=== PATIENT | female | born 1935 | race Caucasian/White ===

== ENCOUNTER 2017-11-26 23:05 | Emergency (ER) | payer MEDICARE, BC ==
[~2017-11-26] VITALS: Ht 165.1 cm; Wt 58.2 kg
[~2017-11-26 23:05] MED LIST: CALCIUM CARBON500 M1 PO; HCTZ 25MG25 MG PO; LEVOTHYROXIN0.075 MG PO; MVI PO; VITAMIN C500 MG PO
[2017-11-26 23:08] VITALS: TEMP 97.6
[2017-11-26] MEDS ORDERED: HCTZ12.5TAB PO (23:55)
[2017-11-26] MEDS ORDERED: SYNTHROID0.075 MG/T PO (23:55)
[2017-11-26] MEDS ORDERED: LYSINE1000 MG PO (23:56)
[2017-11-26] MEDS ORDERED: OMEGA-3 1000 MG1 CAP PO (23:57)
[2017-11-27 01:17] VITALS: BP 147/79; PULSE 71
[2017-11-27] MEDS ORDERED: VITAMIN C500 MG PO ×2 (01:53)
[2017-11-28] MEDS ORDERED: VITAMIN D31000 I1 PO (04:28)
[2017-11-28] MEDS ORDERED: CLEOCIN HCL300 MG PO ×2 (05:43)
[2017-11-28] MEDS ORDERED: CEPHALEXIN500 M1 PO (09:14)
== END 2017-11-27 01:54 | disposition home or self-care (01) ==
LOC: COL.ER 23:05
DX: R04.0 Epistaxis (principal)

== ENCOUNTER 2017-11-28 04:03 | Emergency (ER) | payer MEDICARE, BC ==
[~2017-11-28] VITALS: Ht 167.6 cm; Wt 59.1 kg
[~2017-11-28 04:03] MED LIST changes: +HCTZ12.5TAB PO; +LYSINE1000 MG PO; +OMEGA-3 1000 MG1 CAP PO; +SYNTHROID0.075 MG/T PO
[2017-11-28] MEDS ORDERED: VITAMIN D31000 I1 PO (04:28)
[2017-11-28] MEDS ORDERED: CLEOCIN HCL300 MG PO ×2 (05:43)
[2017-11-28 07:20] LABS: BASO % 0.4 % (0.0-2.0); EOS # 0.2 (0.0-0.7); EOS % 2.3 % (0-4.0); GRAN # 4.7 (1.4-6.5); GRAN % 60.6 % (42.2-75.2); HEMATOCRIT 38.1 % (37.0-47.0); MEAN CELL VOLUME 88 fl (80.0-100.0); MEAN CORPUSCULAR HEMOGLOBIN 30 pg (27.0-31.0); MEAN CORPUSCULAR HGB CONC 34 g/dl (33.0-37.0); MEAN PLATELET VOLUME 9.9 fl (7.4-10.4); MONO # 0.8 (0.1-0.6); MONO % 10.4 % (1.7-9.3); PLATELET COUNT 186 K/mm3 (130-400); RED BLOOD COUNT 4.35 M/mm3 (4.10-5.30); REDCELL DISTRIBUTION WIDTH-CV 13.2 % (11.5-14.5)
[2017-11-28 07:26] LABS: PROTHROMBIN TIME 11.2 SECONDS (9.7-12.8)
[2017-11-28 07:29] LABS: PARTIAL THROMBOPLASTIN TIME 35.5 SECONDS (26.0-37.0)
[2017-11-28 07:30] LABS: CALCIUM 9.7 mg/dL (8.4-10.2); CREATININE, serum 0.97 mg/dL (0.52-1.25); POTASSIUM 3.5 mmol/L (3.4-5.0)
[2017-11-28 09:07] VITALS: BP 143/74; PULSE 72
[2017-11-28] MEDS ORDERED: CEPHALEXIN500 M1 PO (09:14)
== END 2017-11-28 09:20 | disposition home or self-care (01) ==
LOC: COL.ER 04:03
PROVIDERS: Emergency Medicine
DX: R04.0 Epistaxis (principal); I10 Essential (primary) hypertension

== ENCOUNTER 2018-03-25 02:29 | Emergency (ER) | payer MEDICARE, BC ==
[~2018-03-25] VITALS: Ht 167.6 cm; Wt 58.6 kg
[~2018-03-25 02:29] MED LIST changes: +CEPHALEXIN500 M1 PO; +CLEOCIN HCL300 MG PO; +VITAMIN D31000 I1 PO
[2018-03-25 02:33] VITALS: TEMP 98.6
[2018-03-25 03:45] VITALS: BP 151/96; PULSE 64
== END 2018-03-25 03:45 | disposition home or self-care (01) ==
LOC: COL.ER 02:29
DX: R04.0 Epistaxis (principal)

== ENCOUNTER 2018-03-27 09:03 | Emergency (ER) | payer MEDICARE, BC ==
[~2018-03-27] VITALS: Ht 167.6 cm; Wt 58.6 kg
[2018-03-27 10:00] VITALS: TEMP 97.1
[2018-03-27] MEDS ORDERED: CLEOCIN HCL300 MG PO (10:02)
[2018-03-27 10:53] VITALS: BP 133/80; PULSE 80
== END 2018-03-27 10:56 | disposition home or self-care (01) ==
LOC: COL.ER 09:03
DX: R04.0 Epistaxis (principal); I10 Essential (primary) hypertension

== ENCOUNTER → 2019-11-03 | Outpatient (CLI) | payer MEDICARE, BC | LOC: COL.RAD 09:53 | DX: I67.1 Cerebral aneurysm, nonruptured (principal) | CPT/HCPCS: Q9967 ==

== ENCOUNTER → 2020-10-15 | Outpatient (CLI) | payer MEDICARE, BC | LOC: COL.RAD 11:00 | DX: I67.1 Cerebral aneurysm, nonruptured (principal) | CPT/HCPCS: Q9967 ==

== ENCOUNTER 2021-01-30 08:29 | Day surgery (SDC) | payer MEDICARE, BC ==
[~2021-01-30] VITALS: Ht 157.5 cm; Wt 53.3 kg
[2021-01-30] MEDS ORDERED: XALATAN EYE DROPS OU (08:50)
[2021-01-30] MEDS ORDERED: TOPROL XL 25MG25 MG PO (08:51)
[2021-01-30] MEDS ORDERED: ZOLOFT 100MG100 MG PO (08:51)
[2021-01-30 09:22] VITALS: BP 130/78; PULSE 59; TEMP 97.5
[2021-01-30 10:50] VITALS: BP 115/86; PULSE 55; TEMP 97.7
--- NOTE | 2021-01-30 10:50 | NUR ---
PATIENT TRANSPORTED PER CART FROM ENDO ROOM TO BAY 3 ACCOMPANIED BY ENDO RN. PATIENT AWAKE AND TALKING WITH STAFF. PATIENT AMBULATED FROM CART TO CHAIR WITH 2 ASSIST. PATIENT STATES SHE IS DIZZY. MONITORS APPLIED. VSS ON ROOM AIR. PATIENT REQUESTS CRANBERRY JUICE AND MUFFIN.
[2021-01-30 11:05] VITALS: BP 163/71; PULSE 55
--- NOTE | 2021-01-30 11:05 | NUR ---
VSS ON ROOM AIR. PATIENT TOLERATES JUICE AND MUFFIN WITHOUT PROBLEMS. DENIES DIZZINESS AND NAUSEA. PATIENT TALKS WITH STAFF. SPEAKS WITH PATIENT.
[2021-01-30 11:15] VITALS: BP 152/62; PULSE 56
[2021-01-30 11:25] VITALS: BP 131/48; PULSE 61
--- NOTE | 2021-01-30 11:25 | NUR ---
VSS ON ROOM AIR. PATIENT TOLERATES FOOD AND DRINK WITHOUT PROBLEMS. PATIENT DENIES DIZZINESS. 1127 IV DC'D WITH CATHETER TIP INTACT. PRESSURE AND BANDAGE APPLIED. 1130 DISCHARGE INSTRUCTIONS GIVEN VERBAL AND DISCHARGE PACKET PROVIDED. QUESTIONS ANSWERED AND PATIENT VOICED UNDERSTANDING. PATIENT CHANGES INTO STREET CLOTHES.
== END 2021-01-30 11:45 ==
LOC: SDCO 08:29
DX: K21.00 Gastro-esophageal reflux disease with esophagitis, without bleeding (principal); K29.51 Unspecified chronic gastritis with bleeding; K29.80 Duodenitis without bleeding; R19.4 Change in bowel habit; R63.4 Abnormal weight loss; K57.30 Diverticulosis of large intestine without perforation or abscess without bleeding; K62.89 Other specified diseases of anus and rectum; K64.4 Residual hemorrhoidal skin tags; K52.9 Noninfective gastroenteritis and colitis, unspecified; R15.2 Fecal urgency; E03.9 Hypothyroidism, unspecified; I10 Essential (primary) hypertension; M19.90 Unspecified osteoarthritis, unspecified site; Z79.899 Other long term (current) drug therapy; Z79.890 Hormone replacement therapy; Z80.8 Family history of malignant neoplasm of other organs or systems; Z82.3 Family history of stroke
CPT/HCPCS: J2704; J3010; J7030

== ENCOUNTER 2021-03-21 09:29 | Outpatient (RCR) | payer MEDICARE, BC ==
[~2021-03-21 09:29] MED LIST changes: +TOPROL XL 25MG25 MG PO; +XALATAN EYE DROPS OU; +ZOLOFT 100MG100 MG PO
== END 2021-03-25 | disposition home or self-care (01) ==
LOC: WSST
DX: R13.10 Dysphagia, unspecified (principal)

== ENCOUNTER → 2021-11-19 | Outpatient (CLI) | payer MEDICARE, BC | LOC: COL.RAD 10:22 | DX: I67.1 Cerebral aneurysm, nonruptured (principal) | CPT/HCPCS: Q9967 ==

== ENCOUNTER → 2022-04-25 | Outpatient (CLI) | payer MEDICARE, BC ==
[~2022-04-25] MED LIST changes: +ASPI325T6 PO; +FERROUS SU325 MG/TAB PO; +MULTI VITAMINS1 TAB PO; +OSCAL 500 TAB500 MG PO; +PROTONIX 40MG T40 MG PO; +ROXICODONE 55 MG/TAB PO; +TYLENOL 500MG500 MG PO
== END ==
LOC: COL.PUL 03-10 13:15
DX: J84.10 Pulmonary fibrosis, unspecified (principal)